=== PATIENT | male | born 1985 | race Caucasian/White ===

== ENCOUNTER 2018-07-09 10:07 | Emergency (ER) | payer OTHER ==
--- NOTE | 2018-07-09 10:15 | EDM.PDOC ---
ED HPI GENERAL MEDICAL PROBLEM - General Chief Complaint: Respiratory Problem Stated Complaint: COLD Time Seen by Provider: 07/09/18 10:10 Source of Information: Reports: Patient History Limitations: Reports: No Limitations - History of Present Illness INITIAL COMMENTS - FREE TEXT/NARRATIVE: HISTORY AND PHYSICAL: History of present illness: Patient is a 32-year-old male who presents to the ED today with concerns of headache, body aches, sore throat, and sinus pain. He rates his headache and sinus pain a 8/10 and constant pressure. Patient states this has been ongoing for about 1-2 weeks. He states that he at times he feels as if he has fevers but has not checked temperature at home. He has taken ibuprofen and Tylenol without relief of symptoms. He states he's also done [id number] Mucinex and DayQuil. Patient states his ears do feel "plugged." Patient denies cough, shortness of breath, difficulties breathing, chest pain, pain with inspiration, diaphoresis, nausea, vomiting, or other GI, respiratory, or cardiovascular symptoms. Patient denies any health history, other than previous sinus infections. Review of systems: As per history of present illness and below otherwise all systems reviewed and negative. Past medical history: As per history of present illness and as reviewed below otherwise noncontributory. Surgical history: As per history of present illness and as reviewed below otherwise noncontributory. Social history: See social history for further information Family history: As per history of present illness and as reviewed below otherwise noncontributory. Physical exam: General:Patient is alert, orientated, and in no acute distress. He is sitting comfortably on exam table. HEENT: Atraumatic, normocephalic, pupils equal and reactive bilaterally, negative for conjunctival pallor or scleral icterus, mucous membranes moist, TMs do have clear fluid sitting behind the tympanic membrane without erythema bilaterally, throat is moderately erythematous without exudate, neck supple, nontender, trachea midline. No drooling or trismus noted. No meningeal signs. No hot potato voice noted. Moderate pain to palpation of maxillary sinuses. Nares are congested with clear mucus bilaterally. Lungs: Clear to auscultation, breath sounds equal bilaterally, chest nontender. Heart: S1S2, regular rate and rhythm without overt murmur Abdomen: Soft, nondistended, nontender. Negative for masses or hepatosplenomegaly. Negative for costovertebral tenderness. Pelvis: Stable nontender. Genitourinary: Deferred. Rectal: Deferred. Skin: Intact, warm, dry. No lesions or rashes noted. Extremities: Atraumatic, negative for cords or calf pain. Neurovascular unremarkable. Neuro: Awake, alert, oriented. Cranial nerves II through XII unremarkable. Cerebellum unremarkable. Motor and sensory unremarkable throughout. Exam nonfocal. Notes: On exam, patient does have tenderness to maxillary sinuses as well as clear fluid behind the tympanic membranes bilaterally. Patient does complain of significant pain in the sinuses and Toradol was offered and given for this in the ER today. Patient's discomfort did improve with Toradol. Patient did test positive for influenza A. Since the patient's sinus symptoms have been ongoing for 2 weeks, with the flulike symptoms just starting yesterday, we discussed hospital treatment options. I will give him the Tamiflu as flulike symptoms as only started within the last 24 hours. We discussed treating his sinus infection with antibiotics as these symptoms have been going on for much longer. He is aware that if the symptoms are flu related that the antibiotics will not treat this. He would like to continue with Tamiflu and antibiotic treatment. Supportive care measures were reviewed with patient. Patient agrees to plan of care without any questions or concerns. Diagnostics: Strep, influenza Therapeutics: Toradol Prescription: 1. Augmentin 2. Tamiflu 3. Tylenol 3 (dispense #10) Impression: 1. Maxillary sinusitis, bilateral 2. Influenza A Plan: 1.Take medications as prescribed. Drink plenty of fluids to stay hydrated. 2. Use over the counter Flonase to help decrease inflammation in the sinuses or over the counter Mucinex for nasal congestion relief. 3. Alternate Ibuprofen and Tylenol as needed for discomfort. You can use Tylenol No. 3 as prescribed for severe discomfort or at night for sleep. Caution when taking this medication outside of the house as it may cause drowsiness. 3. Follow up with your primary care provider in the next 1-2 days. 4. Return to the ED as needed and as discussed. Definitive disposition and diagnosis as appropriate pending reevaluation and review of above. sinus Pain Score (Numeric/FACES): 6 - Related Data Allergies Allergy/AdvReac Type Severity Reaction Status Date / Time No Known Allergies Allergy Verified 07/09/18 10:13 Home Meds: Home Meds . [No Known Home Meds] 07/09/18 [History] ED ROS GENERAL - Review of Systems Review Of Systems: ROS reveals no pertinent complaints other than HPI. ED EXAM, GENERAL - Physical Exam Exam: See Below (see dictation) Course - Vital Signs Last Recorded V/S: Last Vital Signs Temp 97.5 F 07/09/18 10:13 Pulse 81 07/09/18 10:13 Resp 18 07/09/18 10:13 BP 142/92 H 07/09/18 10:13 Pulse Ox 99 07/09/18 10:13 - Orders/Labs/Meds Orders: Active Orders 24 hr Category Date Time Status CULTURE STREP A CONFIRMATION [] Stat Lab 07/09/18 10:25 Results STREP SCRN A RAPID W CULT CONF [] Stat Lab 07/09/18 10:25 Results Meds: Medications Discontinued Medications Generic Name Dose Route Start Last Admin Trade Name Freq PRN Reason Stop Dose Admin Ketorolac Tromethamine 30 mg 07/09/18 10:23 07/09/18 10:50 Toradol IM 07/09/18 10:24 Not Given ONETIME ONE Ketorolac Tromethamine 60 mg 07/09/18 10:34 07/09/18 10:49 Toradol IM 07/09/18 10:35 60 mg ONETIME ONE Administration Departure - Departure Time of Disposition: 10:59 Disposition: Home, Self-Care 01 Clinical Impression: Influenza A Sinusitis, acute Qualifiers: Sinusitis location: maxillary Recurrence: not specified as recurrent Qualified Code(s): J01.00 - Acute maxillary sinusitis, unspecified - Discharge Information Instructions: Influenza, Adult, [id number], Sinusitis, Adult, [id number] Referrals: PCP,None [Primary Care Provider] - Forms: ED Department Discharge Additional Instructions: The following information is given to patients seen in the emergency department who are being discharged to home. This information is to outline your options for follow-up care. We provide all patients seen in our emergency department with a follow-up referral. The need for follow-up, as well as the timing and circumstances, are variable depending upon the specifics of your emergency department visit. If you don't have a primary care physician on staff, we will provide you with a referral. We always advise you to contact your personal physician following an emergency department visit to inform them of the circumstance of the visit and for follow-up with them and/or the need for any referrals to a consulting specialist. The emergency department will also refer you to a specialist when appropriate. This referral assures that you have the opportunity for follow-up care with a specialist. All of these measure are taken in an effort to provide you with optimal care, which includes your follow-up. Under all circumstances we always encourage you to contact your private physician who remains a resource for coordinating your care. When calling for follow-up care, please make the office aware that this follow-up is from your recent emergency room visit. If for any reason you are refused follow-up, please contact the [facility] Emergency Department at and asked to speak to the emergency department charge nurse. [facility] [address] [place] [id number] [facility] [address] [place] [id number] 1.Take medications as prescribed. Drink plenty of fluids to stay hydrated. 2. Use over the counter Flonase to help decrease inflammation in the sinuses or over the counter Mucinex for nasal congestion relief. 3. Alternate Ibuprofen and Tylenol as needed for discomfort. You can use Tylenol No. 3 as prescribed for severe discomfort or at night for sleep. Caution when taking this medication outside of the house as it may cause drowsiness. 3. Follow up with your primary care provider in the next 1-2 days. 4. Return to the ED as needed and as discussed. - My Orders Last 24 Hours: My Active Orders 07/09/18 10:25 CULTURE STREP A CONFIRMATION [RM] Stat STREP SCRN A RAPID W CULT CONF [RM] Stat - Assessment/Plan Last 24 Hours: My Active Orders 07/09/18 10:25 CULTURE STREP A CONFIRMATION [RM] Stat STREP SCRN A RAPID W CULT CONF [RM] Stat
[2018-07-09] MEDS ORDERED: Ketorolac 30 MG/ML SDV IM ONE (10:23)
[2018-07-09] MEDS ORDERED: Ketorolac 60 MG/2 ML SDV IM ONE (10:34)
== END 2018-07-09 11:18 | disposition home or self-care (01) ==
LOC: MW.ED 10:07
DX: J10.1 Influenza due to other identified influenza virus with other respiratory manifestations (principal)
CPT/HCPCS: 87081; 87804; 87880; 96372; 99283; J1885